=== PATIENT | female | born 1990 | race Two or more races ===

== ENCOUNTER 2024-09-23 10:40 | Inpatient (IN) | payer OTHER ==
[~2024-09-23] VITALS: Ht 162.6 cm; Wt 3.2 kg
[2024-10-03 11:33] VITALS: BP 13/81
[2024-10-03] MEDS ORDERED: PRENATABS RX T1 EACH PO (11:47)
[2024-10-03] MEDS ORDERED: IRON236 MG PO (11:47)
[2024-10-03] MEDS ORDERED: RINGERS SOLUTION,LACTATED 1,000 ML IV SCH ×2 (12:00→18:30)
[2024-10-03] MEDS ORDERED: CEFOXITIN SODIUM 2,000 MG VIAL IV SCH ×2 (12:00→21:00)
[2024-10-03] MEDS ORDERED: CITRIC ACID/SODIUM CITRATE 30 ML BLIST.PACK PO SCH (12:15)
[2024-10-03 13:08] LABS: BASO % 0.3 % (0.1-1.2); EOS # 0.04 (0.04-0.54); EOS % 0.3 % (0.7-7.0); HEMATOCRIT 35.8 % (34.1-44.9); HEMOGLOBIN 12.3 g/dL (11.2-15.7); LYMPH % 17.7 % (19.3-53.1); MEAN CORPUSCULAR HEMOGLOBIN 31.5 pg (25.6-32.2); MONO # 0.65 (0.24-0.82); MONO % 5.5 % (4.7-12.5); NEUT # 8.94 (1.56-6.13); NEUT % 75.5 % (34.0-71.1); PLATELET COUNT 236 K/uL (163-369); RED BLOOD COUNT 3.91 M/uL (3.93-5.22); RED CELL DISTRIBUTION WIDTH 14.1 % (11.6-14.4)
[2024-10-03] MEDS ORDERED: OXYTOCIN 10 UNITS/ML VIAL ONE ×2 (13:35→17:18)
[2024-10-03] MEDS ORDERED: ERYTHROMYCIN BASE OPHT 1GM EACH TUBE OP ONE (13:35)
[2024-10-03 13:37] LABS: INR < 0.93; PARTIAL THROMBOPLASTIN TIME 25.1 SECONDS (22.0-34.0); PROTHROMBIN TIME 10.2 SECONDS (9.0-11.5)
[2024-10-03 14:25] LABS: BILIRUBIN TOTAL 0.33 mg/dL (0.3-1.2); CALCIUM 9.3 mg/dL (8.5-10.1); CREATININE SERUM 0.49 mg/dL (0.55-1.02); GFR 143.72; GLOBULINA 3.8 G/DL (2.4-3.5); POTASSIUM 4.31 mEq/L (3.5-5.1); TOTAL PROTEIN 6.8 gm/dL (6.4-8.2)
[2024-10-03] MEDS ORDERED: KETOROLAC TROMETHAMINE 30 MG VIAL IM ONE ×2 (17:05→17:10)
[2024-10-03 17:53] VITALS: BP 115/71
[2024-10-03] MEDS ORDERED: OXYTOCIN 1,000 ML IV SCH (18:30)
[2024-10-03] MEDS ORDERED: MORPHINE SULFATE 4 MG/ML CARTRIDGE IV PRN (18:30)
[2024-10-03] MEDS ORDERED: SIMETHICONE 125 MG CAPSULE PO SCH (21:00)
[2024-10-03 21:24] LABS: BASO % 0.2 % (0.1-1.2); EOS # 0.01 (0.04-0.54); EOS % 0.1 % (0.7-7.0); HEMATOCRIT 32.6 % (34.1-44.9); HEMOGLOBIN 11.4 g/dL (11.2-15.7); LYMPH # 2.54 (1.18-3.74); LYMPH % 13.7 % (19.3-53.1); MEAN CORPUSCULAR HEMOGLOBIN 32.4 pg (25.6-32.2); MONO # 1.03 (0.24-0.82); MONO % 5.6 % (4.7-12.5); NEUT # 14.84 (1.56-6.13); NEUT % 79.9 % (34.0-71.1); PLATELET COUNT 217 K/uL (163-369); RED BLOOD COUNT 3.52 M/uL (3.93-5.22); RED CELL DISTRIBUTION WIDTH 14.2 % (11.6-14.4)
[2024-10-04] MEDS ORDERED: KETOROLAC TROMETHAMINE 10 MG TABLET PO SCH
[2024-10-04 00:06] VITALS: BP 121/72
[2024-10-04 05:00] VITALS: BP 134/85
[2024-10-04 06:31] LABS: BASO % 0.2 % (0.1-1.2); EOS # 0.02 (0.04-0.54); EOS % 0.2 % (0.7-7.0); HEMATOCRIT 30.8 % (34.1-44.9); HEMOGLOBIN 10.6 g/dL (11.2-15.7); LYMPH # 1.85 (1.18-3.74); LYMPH % 14.3 % (19.3-53.1); MEAN CORPUSCULAR HEMOGLOBIN 32.2 pg (25.6-32.2); MONO # 0.87 (0.24-0.82); MONO % 6.7 % (4.7-12.5); NEUT # 10.09 (1.56-6.13); NEUT % 78.1 % (34.0-71.1); PLATELET COUNT 203 K/uL (163-369); RED BLOOD COUNT 3.29 M/uL (3.93-5.22); RED CELL DISTRIBUTION WIDTH 14.5 % (11.6-14.4)
[2024-10-04] MEDS ORDERED: OxyCODONE HCL 5 MG TABLET (ROXICODONE) PO SCH (08:00)
[2024-10-04] MEDS ORDERED: FF) RHO(D) IMMUNE GLOBULIN (POM) IM NR (08:00)
[2024-10-04 08:53] VITALS: BP 114/71
[2024-10-04 15:47] VITALS: BP 109/73
[2024-10-04 20:24] VITALS: BP 121/79
[2024-10-05 00:23] VITALS: BP 118/77
[2024-10-05 05:00] VITALS: BP 97/60
[2024-10-05 08:11] VITALS: BP 119/77
== END 2024-10-05 12:57 | disposition home or self-care (01) | DRG 788 ==
LOC: OB/GYN 10-03 11:39 → LDR 10-03 11:39 → O/R 10-03 13:21 → OB/GYN 10-03 15:06 → LDR 10-09 10:39
PROVIDERS: Obstetrics & Gynecology Maternal & Fetal Medicine; ADMIT Obstetrics & Gynecology; ATTEND Obstetrics & Gynecology
PROC: 4A1HXCZ Monitoring of Products of Conception, Cardiac Rate, External Approach (ICD-10-PCS; 2024-10-03)
PROC: 10D00Z1 Extraction of Products of Conception, Low, Open Approach (ICD-10-PCS; principal; 2024-10-03 17:30)
DX: O34.211 Maternal care for low transverse scar from previous cesarean delivery (principal); Z3A.39 39 weeks gestation of pregnancy; Z37.0 Single live birth

== ENCOUNTER 2024-10-03 09:38 | Outpatient (CLI) | payer OTHER ==
[2024-10-03] MEDS ORDERED: IRON236 MG PO (11:47)
[2024-10-03] MEDS ORDERED: PRENATABS RX T1 EACH PO (11:47)
== END 2024-10-03 11:41 | disposition still patient (30) ==
LOC: NST 09:38
PROVIDERS: ATTEND Obstetrics & Gynecology Maternal & Fetal Medicine
DX: Z34.83 Encounter for supervision of other normal pregnancy, third trimester (principal)